=== PATIENT | female | born 1950 | race Caucasian/White ===

== ENCOUNTER → 2017-03-17 | Outpatient (REF) | payer MEDICARE, OTHER | LOC: M LAB REF 12:58 | PROVIDERS: ATTEND Internal Medicine | DX: R31.9 Hematuria, unspecified (principal) ==

== ENCOUNTER → 2017-03-25 | Outpatient (REF) | payer MEDICARE, OTHER | LOC: M LAB REF 12:20 | PROVIDERS: ATTEND Internal Medicine | DX: R31.9 Hematuria, unspecified (principal) ==

== ENCOUNTER → 2017-04-14 | Outpatient (REF) | payer MEDICARE, OTHER ==
[2017-04-14 14:18] LABS: BACTERIA, URINE NONE SEEN; CALCIUM OXALATE CRYSTALS,URINE SMALL AMOUNT /hpf; HYALINE CAST, URINE NONE SEEN /lpf (0-1); MICROSCOPIC EXAM UNSPUN; RBC, URINE NONE SEEN /hpf (0-3); SQUAMOUS EPITHELIAL CELL URINE 0 /hpf (SMALL AMT); WBC, URINE 0-1 /hpf (0-3)
== END ==
LOC: M LAB REF 13:10
PROVIDERS: ATTEND Internal Medicine
DX: R31.9 Hematuria, unspecified (principal)

== ENCOUNTER → 2017-06-21 | Outpatient (REF) | payer MEDICARE, OTHER | LOC: M LAB REF 09:01 | PROVIDERS: ATTEND Internal Medicine | DX: M19.90 Unspecified osteoarthritis, unspecified site (principal) ==

== ENCOUNTER → 2017-06-23 | Outpatient (REF) | payer MEDICARE, OTHER ==
[2017-06-23 20:16] LABS: AMYLASE 46 U/L (25-115)
== END ==
LOC: M LAB REF 18:50
PROVIDERS: ATTEND Internal Medicine
DX: R10.12 Left upper quadrant pain (principal)

== ENCOUNTER → 2019-03-06 | Outpatient (REF) | payer MEDICARE, OTHER | LOC: M LAB REF 12:35 | PROVIDERS: ATTEND Internal Medicine | DX: M19.90 Unspecified osteoarthritis, unspecified site (principal) ==

== ENCOUNTER → 2019-09-10 | Outpatient (REF) | payer MEDICARE, OTHER | LOC: M LAB REF 17:15 | PROVIDERS: ATTEND Internal Medicine | DX: M79.10 Myalgia, unspecified site (principal); M19.90 Unspecified osteoarthritis, unspecified site ==

== ENCOUNTER → 2020-03-20 | Outpatient (REF) | payer MEDICARE, OTHER | LOC: M LAB REF 12:15 | PROVIDERS: ATTEND Internal Medicine | DX: M79.10 Myalgia, unspecified site (principal); Z85.3 Personal history of malignant neoplasm of breast ==

== ENCOUNTER → 2020-04-23 | Outpatient (REF) | payer MEDICARE, OTHER | LOC: M LAB REF 12:13 | PROVIDERS: ATTEND Internal Medicine | DX: R20.2 Paresthesia of skin (principal) ==

== ENCOUNTER → 2020-10-27 | Outpatient (REF) | payer MEDICARE, OTHER | LOC: M LAB REF 16:38 | PROVIDERS: ATTEND Internal Medicine | DX: M25.50 Pain in unspecified joint (principal) ==

== ENCOUNTER → 2021-03-09 | Outpatient (REF) | payer MEDICARE, OTHER | LOC: M LAB REF 12:10 | PROVIDERS: ATTEND Internal Medicine | DX: M25.50 Pain in unspecified joint (principal) ==

== ENCOUNTER → 2021-09-25 | Outpatient (REF) | payer MEDICARE, OTHER | LOC: M LAB REF 12:18 | PROVIDERS: ATTEND Internal Medicine | DX: M25.50 Pain in unspecified joint (principal) ==

== ENCOUNTER → 2022-03-30 | Outpatient (REF) | payer MEDICARE, OTHER | LOC: M LAB REF 11:23 | PROVIDERS: ATTEND Internal Medicine | DX: M25.50 Pain in unspecified joint (principal) ==

== ENCOUNTER → 2022-08-03 | Outpatient (REF) | payer MEDICARE, OTHER ==
[2022-08-04 13:08] LABS: ANTINUCLEAR ANTIBODIES DIRECT Negative (Negative)
== END ==
LOC: M LAB REF 12:11
PROVIDERS: ATTEND Internal Medicine
DX: M25.50 Pain in unspecified joint (principal); R68.2 Dry mouth, unspecified

== ENCOUNTER → 2022-09-19 | Outpatient (REF) | payer MEDICARE, OTHER ==
[2022-09-19 18:52] LABS: APPEARANCE, URINE MANUAL CLOUDY (CLEAR); BILIRUBIN, URINE MANUAL NEGATIVE (NEGATIVE); BLOOD URINE MANUAL POSITIVE (NEGATIVE); COLOR, URINE MANUAL AMBER (YELLOW); GLUCOSE, URINE (UA) MANUAL NEGATIVE (NEGATIVE); KETONE, URINE MANUAL NEGATIVE (NEGATIVE); LEUKOCYTE ESTERASE, URINE MAN POSITIVE (NEGATIVE); NITRITE, URINE MANUAL POSITIVE (NEGATIVE); PROTEIN, URINE MANUAL 2+ mg/dL (NEGATIVE); UROBILINOGEN, URINE MANUAL NORMAL (NORMAL)
[2022-09-19 18:53] LABS: SPECIFIC GRAVITY,URINE MANUAL 1.015 (1.002-1.035)
[2022-09-19 19:32] LABS: BACTERIA, URINE LARGE AMOUNT; RBC, URINE TNTC /hpf (0-3); SQUAMOUS EPITHELIAL CELL URINE SMALL AMOUNT /hpf (SMALL AMT)
== END ==
LOC: M LAB REF 18:27
PROVIDERS: ATTEND Physician Assistant Medical
DX: N39.0 Urinary tract infection, site not specified (principal)

== ENCOUNTER → 2022-10-12 | Outpatient (CLI) | payer MEDICARE, OTHER | LOC: M RAD 13:28 | PROVIDERS: ATTEND Internal Medicine | DX: M25.551 Pain in right hip (principal) ==

== ENCOUNTER → 2023-03-18 | Outpatient (REF) | payer MEDICARE, OTHER | LOC: M LAB REF 11:49 | PROVIDERS: ATTEND Internal Medicine | DX: M25.50 Pain in unspecified joint (principal) ==

== ENCOUNTER → 2023-03-23 | Outpatient (CLI) | payer MEDICARE, OTHER | LOC: M RAD 09:42 | PROVIDERS: ATTEND Internal Medicine | DX: R06.00 Dyspnea, unspecified (principal) ==

== ENCOUNTER → 2023-06-06 | Outpatient (REF) | payer MEDICARE, OTHER ==
[2023-06-06 17:12] LABS: C REACTIVE PROTEIN QUANTITATIV 1.3 MG/DL (<1.0)
== END ==
LOC: M LAB REF 16:26
PROVIDERS: ATTEND Internal Medicine
DX: M25.50 Pain in unspecified joint (principal)

== ENCOUNTER → 2024-06-06 | Outpatient (REF) | payer MEDICARE, OTHER ==
[2024-06-06 19:02] LABS: C REACTIVE PROTEIN QUANTITATIV 0.5 MG/DL (<1.0)
[2024-06-06 19:05] LABS: RHEUMATOID FACTOR QUANT 9.3 IU/ML (<14)
[2024-06-11 14:31] LABS: ANA SCREEN, IFA NEGATIVE (NEGATIVE)
[2024-06-11 23:47] LABS: CYCLIC CITRULLINATED PEPTIDE < 16 UNITS (<20)
[2024-06-12 16:58] LABS: LYME TOTAL ANTIBODY CIA <= 0.90 Index (<=0.90)
== END ==
LOC: M LAB REF 16:31
PROVIDERS: ATTEND Internal Medicine
DX: M79.10 Myalgia, unspecified site (principal); M25.50 Pain in unspecified joint

== ENCOUNTER → 2024-09-18 | Outpatient (REF) | payer MEDICARE, OTHER | LOC: M LAB REF 11:36 | PROVIDERS: ATTEND Internal Medicine | DX: M79.10 Myalgia, unspecified site (principal) ==

== ENCOUNTER 2025-06-06 11:48 | Day surgery (SDC) | payer MEDICARE, OTHER ==
[~2025-06-06] VITALS: Ht 162.6 cm; Wt 70.8 kg
[~2025-06-06 11:48] MED LIST: ACET-897 PO; ATOR1TAB19 PO; BRIM0.2S13 OU; TIMO0.5S20 OU; XALA0.007 OU
[2025-06-06] MEDS ORDERED: LIDOCAINE 2% 100 MG/5 ML SDV (FOR ANES.) As Ordered ONE (13:14)
[2025-06-06 13:42] VITALS: TEMP 97.2
[2025-06-06 13:59] VITALS: BP 117/67; O2SAT 99
== END 2025-06-06 14:15 | disposition home or self-care (01) ==
LOC: M OPP 11:48
PROVIDERS: ATTEND Surgery
DX: Z12.11 Encounter for screening for malignant neoplasm of colon (principal); K63.5 Polyp of colon; K57.30 Diverticulosis of large intestine without perforation or abscess without bleeding; K21.00 Gastro-esophageal reflux disease with esophagitis, without bleeding; K44.9 Diaphragmatic hernia without obstruction or gangrene; K29.71 Gastritis, unspecified, with bleeding; R10.13 Epigastric pain; Z88.0 Allergy status to penicillin; Z88.2 Allergy status to sulfonamides; Z79.899 Other long term (current) drug therapy

== ENCOUNTER → 2025-07-02 | Outpatient (CLI) | payer MEDICARE, OTHER ==
[~2025-07-02] MED LIST changes: +METHACHOLINE KIT (6 VIAL.NEB PREMIX) INH ONE
== END ==
LOC: M CARPUL 08:25
PROVIDERS: ATTEND Physician Assistant
DX: R06.02 Shortness of breath (principal)
CPT/HCPCS: 94070; 95070; J7674

== ENCOUNTER → 2025-07-11 | Outpatient (REF) | payer MEDICARE, OTHER ==
[~2025-07-11] MED LIST changes: -METHACHOLINE KIT (6 VIAL.NEB PREMIX) INH ONE
== END ==
LOC: M LAB REF 14:36
PROVIDERS: ATTEND Internal Medicine
DX: M79.10 Myalgia, unspecified site (principal)

== ENCOUNTER → 2025-07-19 | Outpatient (CLI) | payer MEDICARE, OTHER | LOC: M LAB 08:56 | PROVIDERS: ATTEND Internal Medicine | DX: K31.84 Gastroparesis (principal); K21.9 Gastro-esophageal reflux disease without esophagitis ==

== ENCOUNTER → 2025-09-23 | Outpatient (REF) | payer MEDICARE, OTHER | LOC: M LAB REF 13:59 | PROVIDERS: ATTEND Internal Medicine | DX: G25.81 Restless legs syndrome (principal) ==